=== PATIENT | male | born 1990 | race Caucasian/White ===

== ENCOUNTER 2023-03-14 04:46 | Emergency (ER) | payer SELFPAY ==
[~2023-03-14] VITALS: Ht 165.1 cm; Wt 68.0 kg
[2023-03-14 04:51] VITALS: BP 130/78; PULSE 92; RESP 16; TEMP 98.9; O2SAT 96
[2023-03-14 04:59] VITALS: O2SAT 96
== END 2023-03-14 05:36 ==
LOC: MED 04:46
DX: Z02.89 Encounter for other administrative examinations (principal); F10.90 Alcohol use, unspecified, uncomplicated; Y90.9 Presence of alcohol in blood, level not specified; V49.9XXA Car occupant (driver) (passenger) injured in unspecified traffic accident, initial encounter; Y93.89 Activity, other specified; Y92.410 Unspecified street and highway as the place of occurrence of the external cause; Y99.8 Other external cause status
CPT/HCPCS: 71045; 99283